=== PATIENT | female | born 1995 | race Caucasian/White ===

== ENCOUNTER 2022-01-07 11:30 | Observation (INO) | payer OTHER ==
[~2022-01-07] VITALS: Ht 152.4 cm; Wt 83.0 kg
[2022-01-07 12:22] VITALS: BP 126/82
[2022-01-07 13:09] LABS: BASOPHILS % (AUTO) 0.4 % (0.0-2.0); EOSINOPHILS # (AUTO) 0.1 K/uL (0-0.4); EOSINOPHILS % (AUTO) 0.5 % (0.0-4.0); HEMATOCRIT 38.2 % (36-48); HEMOGLOBIN 12.9 g/dL (12.0-16.0); LYMPHOCYTES # (AUTO) 2.1 K/uL (2.5-16.5); LYMPHOCYTES % (AUTO) 20.1 % (20.5-51.1); MEAN CORPUSCULAR HEMOGLOBIN 30 pg (27-31); MEAN CORPUSCULAR HGB CONC 34 g/dL (33-37); MEAN CORPUSCULAR VOLUME 87.1 fL (80-94); MONOCYTES # (AUTO) 0.8 K/uL (0.8-1.0); MONOCYTES % (AUTO) 7.8 % (1.7-9.3); NEUTROPHILS # (AUTO) 7.3 K/uL (1.8-7.7); NEUTROPHILS % (AUTO) 71.2 % (42.2-75.2); PLATELET COUNT (AUTO) 170 K/uL (140-450); RED BLOOD CELL COUNT(AUTO) 4.39 MIL/uL (4.20-5.40); RED CELL DISTRIBUTION WIDTH 14.2 % (11.6-13.7); WHITE BLOOD COUNT (AUTO) 10.3 K/uL (4.8-10.8)
[2022-01-07 13:13] LABS: APPEARANCE,URINE CLEAR (CLEAR); BILIRUBIN,URINE NEGATIVE (NEGATIVE); BLOOD, URINE NEGATIVE (NEGATIVE); COLOR,URINE YELLOW (YELLOW); LEUKOCYTE ESTERASE ,URINE NEGATIVE (NEGATIVE); NITRITE, URINE NEGATIVE (NEGATIVE); PH,URINE 6.5 (5.0-9.0); UGLUCOSE NEGATIVE (NEGATIVE)
[2022-01-07 13:29] LABS: ALBUMIN 2.6 g/dL (3.4-5.0); ANION GAP 15.1 (8-16); ASPARTATE AMINOTRANSFERASE 12 U/L (15-37); CARBON DIOXIDE 20.9 mmol/L (21-32); CHLORIDE 104 mmol/L (98-107); CREATININE 0.6 mg/dL (0.6-1.3); GFR ARICAN-AMERICAN 155 mL/min (>90); GLUCOSE 94 mg/dL (74-106); SODIUM SERUM 136 mmol/L (136-145); TOTAL BILIRUBIN 0.6 mg/dL (0.0-1.0); UREA NITROGEN, BLOOD 8 mg/dL (7-18); URIC ACID 3.9 mg/dL (2.6-7.2)
[2022-01-07 13:31] LABS: PROTHROMBIN TIME 9.1 secs (10.8-13.4)
[2022-01-07] MEDS ORDERED: PRETAB PO (14:58)
[2022-01-07 18:43] LABS: CREATININE,URINE 114 mg/dL (30-125); URINE TOTAL PROTEIN 32.2 mg/dL (0-12)
== END 2022-01-07 15:10 | disposition home or self-care (01) ==
LOC: MLD 11:30
PROVIDERS: ADMIT Obstetrics & Gynecology; ATTEND Obstetrics & Gynecology
DX: O26.893 Other specified pregnancy related conditions, third trimester (principal); Z20.822 Contact with and (suspected) exposure to COVID-19; R03.0 Elevated blood-pressure reading, without diagnosis of hypertension; Z3A.37 37 weeks gestation of pregnancy
CPT/HCPCS: 36415; 59025; 80053; 81003; 82570; 84550; 85025; 85384; 85610; 85730; 86886; 86900; 86901; 87426; G0378

== ENCOUNTER 2022-01-09 22:15 | Observation (INO) | payer OTHER ==
[~2022-01-09] VITALS: Ht 152.4 cm; Wt 83.9 kg
[~2022-01-09 22:15] MED LIST: PRETAB PO
[2022-01-09 22:54] VITALS: BP 124/87
[2022-01-10 00:38] LABS: BASOPHILS # (AUTO) 0.1 K/uL (0.00-0.22); BASOPHILS % (AUTO) 0.5 % (0.0-2.0); EOSINOPHILS # (AUTO) 0.1 K/uL (0-0.4); EOSINOPHILS % (AUTO) 0.4 % (0.0-4.0); HEMATOCRIT 41.4 % (36-48); HEMOGLOBIN 14.1 g/dL (12.0-16.0); LYMPHOCYTES # (AUTO) 2.6 K/uL (2.5-16.5); LYMPHOCYTES % (AUTO) 21.3 % (20.5-51.1); MEAN CORPUSCULAR HEMOGLOBIN 30 pg (27-31); MEAN CORPUSCULAR HGB CONC 34 g/dL (33-37); MEAN CORPUSCULAR VOLUME 87.5 fL (80-94); MONOCYTES # (AUTO) 0.8 K/uL (0.8-1.0); MONOCYTES % (AUTO) 6.4 % (1.7-9.3); NEUTROPHILS # (AUTO) 8.6 K/uL (1.8-7.7); NEUTROPHILS % (AUTO) 71.4 % (42.2-75.2); PLATELET COUNT (AUTO) 195 K/uL (140-450); RED BLOOD CELL COUNT(AUTO) 4.73 MIL/uL (4.20-5.40); RED CELL DISTRIBUTION WIDTH 14.4 % (11.6-13.7)
[2022-01-10 00:57] LABS: PROTHROMBIN TIME 8.9 secs (10.8-13.4)
[2022-01-10 00:58] LABS: ALBUMIN 2.9 g/dL (3.4-5.0); ANION GAP 14.7 (8-16); CARBON DIOXIDE 23.5 mmol/L (21-32); CREATININE 0.6 mg/dL (0.6-1.3); POTASSIUM 4.2 mmol/L (3.5-5.1); TOTAL BILIRUBIN 0.7 mg/dL (0.0-1.0); URIC ACID 3.6 mg/dL (2.6-7.2)
[2022-01-10 01:05] LABS: URINE TOTAL PROTEIN 10.1 mg/dL (0-12)
== END 2022-01-10 01:35 | disposition home or self-care (01) ==
LOC: MLD 22:15
PROVIDERS: ADMIT Obstetrics & Gynecology; ATTEND Obstetrics & Gynecology
DX: O26.893 Other specified pregnancy related conditions, third trimester (principal); Z20.822 Contact with and (suspected) exposure to COVID-19; R03.0 Elevated blood-pressure reading, without diagnosis of hypertension; Z3A.37 37 weeks gestation of pregnancy
CPT/HCPCS: 36415; 80053; 82570; 84550; 85025; 85384; 85610; 85730; 87426; G0378; 59025; 81000

== ENCOUNTER 2022-01-13 20:25 | Inpatient (IN) | payer OTHER ==
[~2022-01-13] VITALS: Ht 152.4 cm; Wt 83.9 kg
[2022-01-13 20:12] VITALS: BP 138/87
[2022-01-13] MEDS ORDERED: MORPHINE SULFATE 5 MG/ML VIAL IVP PRN (20:55)
[2022-01-13] MEDS ORDERED: ONDANSETRON 4 MG/2 ML VIAL IVP PRN (20:55)
[2022-01-13] MEDS ORDERED: LACTATED RINGERS 1,000 ML IV SCH (20:55)
[2022-01-13] MEDS ORDERED: OXYTOCIN 20 UNITS in LACTATED RINGERS 1,000 ML IV SCH (20:55)
[2022-01-13] MEDS ORDERED: METHYLERGONOVINE 0.2 MG/ML AMP IM PRN (20:55)
[2022-01-13] MEDS ORDERED: LACTATED RINGERS 500 ML IV SCH (20:55)
[2022-01-13] MEDS ORDERED: CARBOPROST 250 MCG/ML AMP IM PRN (20:55)
[2022-01-13 21:42] LABS: BASOPHILS % (AUTO) 0.2 % (0.0-2.0); EOSINOPHILS % (AUTO) 0.3 % (0.0-4.0); HEMATOCRIT 35.8 % (36-48); HEMOGLOBIN 12.5 g/dL (12.0-16.0); LYMPHOCYTES # (AUTO) 2.3 K/uL (2.5-16.5); LYMPHOCYTES % (AUTO) 20.3 % (20.5-51.1); MEAN CORPUSCULAR HEMOGLOBIN 30 pg (27-31); MEAN CORPUSCULAR HGB CONC 35 g/dL (33-37); MEAN CORPUSCULAR VOLUME 86.3 fL (80-94); MONOCYTES # (AUTO) 0.8 K/uL (0.8-1.0); MONOCYTES % (AUTO) 7.2 % (1.7-9.3); PLATELET COUNT (AUTO) 154 K/uL (140-450); RED BLOOD CELL COUNT(AUTO) 4.15 MIL/uL (4.20-5.40); RED CELL DISTRIBUTION WIDTH 14.2 % (11.6-13.7); WHITE BLOOD COUNT (AUTO) 11.2 K/uL (4.8-10.8)
[2022-01-13 21:46] LABS: APPEARANCE,URINE CLEAR (CLEAR); BILIRUBIN,URINE NEGATIVE (NEGATIVE); BLOOD, URINE NEGATIVE (NEGATIVE); COLOR,URINE YELLOW (YELLOW); LEUKOCYTE ESTERASE ,URINE NEGATIVE (NEGATIVE); NITRITE, URINE NEGATIVE (NEGATIVE); UGLUCOSE NEGATIVE (NEGATIVE)
[2022-01-13 22:08] LABS: ALBUMIN 2.6 g/dL (3.4-5.0); ANION GAP 15.5 (8-16); CARBON DIOXIDE 19.5 mmol/L (21-32); CREATININE 0.6 mg/dL (0.6-1.3); TOTAL BILIRUBIN 0.6 mg/dL (0.0-1.0); URIC ACID 4.5 mg/dL (2.6-7.2)
[2022-01-13 22:19] LABS: PROTHROMBIN TIME 9.1 secs (10.8-13.4)
[2022-01-14] MEDS ORDERED: MISOPROSTOL 25 MCG TAB VG SCH
[2022-01-14 02:15] LABS: URINE TOTAL PROTEIN 7.4 mg/dL (0-12)
[2022-01-14] MEDS ORDERED: MISOPROSTOL 25 MCG TAB PO SCH ×2 (06:00)
--- NOTE | 2022-01-14 10:39 | NUR ---
PATIENT HAS BEEN SCREENED AND CATEGORIZED LOW NUTRITION RISK. PATIENT WILL BE SEEN WITHIN 7 DAYS OF ADMISSION. 01/20/22 REVIEWED BY PAUL GUST[address]ON [address]
[2022-01-14] MEDS ORDERED: MORPHINE SULFATE 5 MG/ML VIAL IVP PRN (12:00)
[2022-01-14] MEDS ORDERED: MISOPROSTOL 25 MCG TAB ONE (12:02)
[2022-01-14] MEDS: MISOPROSTOL 25 MCG TAB VG SCH ×2 (12:14→20:22)
[2022-01-14] MEDS: LACTATED RINGERS 1,000 ML IV SCH ×2 (14:14→21:52)
[2022-01-14] MEDS ORDERED: LABETALOL 20 MG/4 ML VIAL IVP PRN (21:00)
[2022-01-15] MEDS: MISOPROSTOL 25 MCG TAB VG SCH ×3 (02:31→16:22)
[2022-01-15 09:00] LABS: BASOPHILS % (AUTO) 0.3 % (0.0-2.0); EOSINOPHILS # (AUTO) 0.1 K/uL (0-0.4); EOSINOPHILS % (AUTO) 0.8 % (0.0-4.0); HEMATOCRIT 36.6 % (36-48); HEMOGLOBIN 12.5 g/dL (12.0-16.0); LYMPHOCYTES # (AUTO) 2.4 K/uL (2.5-16.5); LYMPHOCYTES % (AUTO) 23.6 % (20.5-51.1); MEAN CORPUSCULAR HEMOGLOBIN 30 pg (27-31); MEAN CORPUSCULAR HGB CONC 34 g/dL (33-37); MEAN CORPUSCULAR VOLUME 88.2 fL (80-94); MONOCYTES # (AUTO) 0.8 K/uL (0.8-1.0); MONOCYTES % (AUTO) 7.5 % (1.7-9.3); NEUTROPHILS # (AUTO) 6.8 K/uL (1.8-7.7); NEUTROPHILS % (AUTO) 67.8 % (42.2-75.2); PLATELET COUNT (AUTO) 130 K/uL (140-450); RED BLOOD CELL COUNT(AUTO) 4.15 MIL/uL (4.20-5.40); RED CELL DISTRIBUTION WIDTH 14.5 % (11.6-13.7)
[2022-01-15 09:21] LABS: ALBUMIN 2.3 g/dL (3.4-5.0); ANION GAP 13.8 (8-16); CARBON DIOXIDE 21.2 mmol/L (21-32); CREATININE 0.6 mg/dL (0.6-1.3); TOTAL BILIRUBIN 0.6 mg/dL (0.0-1.0); URIC ACID 4.3 mg/dL (2.6-7.2)
[2022-01-15] MEDS: LACTATED RINGERS 1,000 ML IV SCH (09:30)
[2022-01-15 09:39] LABS: PROTHROMBIN TIME 8.8 secs (10.8-13.4)
[2022-01-15 11:27] LABS: URINE TOTAL PROTEIN 10.3 mg/dL (0-12)
[2022-01-15] MEDS ORDERED: OXYTOCIN 20 UNITS in LACTATED RINGERS 1,000 ML IV SCH (22:00)
[2022-01-15] MEDS ORDERED: OXYTOCIN 20 UNITS/LR PREMIX 1,000 ML IV ONE (23:38)
[2022-01-16] MEDS: LACTATED RINGERS 1,000 ML IV SCH
[2022-01-16 08:35] LABS: BASOPHILS % (AUTO) 0.4 % (0.0-2.0); EOSINOPHILS % (AUTO) 0.2 % (0.0-4.0); HEMATOCRIT 36.4 % (36-48); HEMOGLOBIN 12.3 g/dL (12.0-16.0); LYMPHOCYTES # (AUTO) 1.8 K/uL (2.5-16.5); MEAN CORPUSCULAR HEMOGLOBIN 30 pg (27-31); MEAN CORPUSCULAR HGB CONC 34 g/dL (33-37); MEAN CORPUSCULAR VOLUME 87.4 fL (80-94); MONOCYTES # (AUTO) 0.9 K/uL (0.8-1.0); MONOCYTES % (AUTO) 6.8 % (1.7-9.3); NEUTROPHILS # (AUTO) 9.8 K/uL (1.8-7.7); NEUTROPHILS % (AUTO) 78.6 % (42.2-75.2); PLATELET COUNT (AUTO) 138 K/uL (140-450); RED BLOOD CELL COUNT(AUTO) 4.17 MIL/uL (4.20-5.40); RED CELL DISTRIBUTION WIDTH 14.4 % (11.6-13.7); WHITE BLOOD COUNT (AUTO) 12.5 K/uL (4.8-10.8)
[2022-01-16] MEDS ORDERED: MORPHINE SULFATE 10 MG/ML VIAL ONE (09:02)
[2022-01-16 09:11] VITALS: BP 126/79
[2022-01-16 09:18] LABS: PROTHROMBIN TIME 9.3 secs (10.8-13.4)
[2022-01-16 09:36] LABS: ALBUMIN 2.2 g/dL (3.4-5.0); CARBON DIOXIDE 21.5 mmol/L (21-32); CREATININE 0.6 mg/dL (0.6-1.3); TOTAL BILIRUBIN 0.8 mg/dL (0.0-1.0); URIC ACID 4.7 mg/dL (2.6-7.2)
[2022-01-16 10:49] LABS: POTASSIUM 3.9 mmol/L (3.5-5.1)
[2022-01-16 10:50] LABS: ANION GAP 15.4 (8-16)
[2022-01-16] MEDS ORDERED: LIDOCAINE 1% 500 MG/50 ML VIAL ONE (11:32)
[2022-01-16] MEDS ORDERED: fentaNYL citrate 0.05 MG/ML VIAL ONE (12:18)
[2022-01-16] MEDS ORDERED: fentaNYL citrate 0.05 MG/ML VIAL IVP ONE (12:25)
[2022-01-16 16:00] LABS: URINE TOTAL PROTEIN 13.1 mg/dL (0-12)
[2022-01-16] MEDS ORDERED: OXYTOCIN 10 UNITS/ML VIAL IM PRN (17:40)
[2022-01-16] MEDS ORDERED: BENZOCAINE/MENTHOL 20%-0.5% 60 GM CAN TP PRN (17:40)
[2022-01-16] MEDS ORDERED: IBUPROFEN 600 MG TAB PO PRN (17:40)
[2022-01-16] MEDS ORDERED: MEASLES, MUMPS, AND RUBELLA 1 VIAL SQVAC ONE (17:40)
[2022-01-16] MEDS ORDERED: METHYLERGONOVINE 0.2 MG/ML AMP IM PRN (17:40)
[2022-01-16] MEDS ORDERED: METHYLERGONOVINE 0.2 MG TAB PO PRN (17:40)
[2022-01-16] MEDS: IBUPROFEN 800 MG TAB PO PRN (17:50)
[2022-01-17 07:27] LABS: HEMATOCRIT 30.8 % (36-48); HEMOGLOBIN 10.5 g/dL (12.0-16.0)
[2022-01-17] MEDS: IBUPROFEN 800 MG TAB PO PRN (08:25)
[2022-01-18 05:41] LABS: BASOPHILS % (AUTO) 0.2 % (0.0-2.0); EOSINOPHILS # (AUTO) 0.1 K/uL (0-0.4); EOSINOPHILS % (AUTO) 0.8 % (0.0-4.0); HEMATOCRIT 28.7 % (36-48); HEMOGLOBIN 9.9 g/dL (12.0-16.0); LYMPHOCYTES # (AUTO) 2.1 K/uL (2.5-16.5); LYMPHOCYTES % (AUTO) 20.1 % (20.5-51.1); MEAN CORPUSCULAR HEMOGLOBIN 30 pg (27-31); MEAN CORPUSCULAR HGB CONC 35 g/dL (33-37); MEAN CORPUSCULAR VOLUME 88.3 fL (80-94); MONOCYTES # (AUTO) 0.7 K/uL (0.8-1.0); MONOCYTES % (AUTO) 6.8 % (1.7-9.3); NEUTROPHILS # (AUTO) 7.6 K/uL (1.8-7.7); NEUTROPHILS % (AUTO) 72.1 % (42.2-75.2); PLATELET COUNT (AUTO) 117 K/uL (140-450); RED BLOOD CELL COUNT(AUTO) 3.26 MIL/uL (4.20-5.40); RED CELL DISTRIBUTION WIDTH 14.7 % (11.6-13.7); WHITE BLOOD COUNT (AUTO) 10.5 K/uL (4.8-10.8)
== END 2022-01-18 11:00 | disposition home or self-care (01) | DRG 807 ==
LOC: MLD 20:25 → MFCC 01-16 14:44
PROVIDERS: ADMIT Obstetrics & Gynecology; ATTEND Obstetrics & Gynecology
PROC: 10E0XZZ Delivery of Products of Conception, External Approach (ICD-10-PCS; principal; 2022-01-16)
PROC: 0KQM0ZZ Repair Perineum Muscle, Open Approach (ICD-10-PCS; 2022-01-16)
PROC: 3E033VJ Introduction of Other Hormone into Peripheral Vein, Percutaneous Approach (ICD-10-PCS; 2022-01-16)
PROC: 3E0DXGC Introduction of Other Therapeutic Substance into Mouth and Pharynx, External Approach (ICD-10-PCS; 2022-01-16)
DX: O69.1XX0 Labor and delivery complicated by cord around neck, with compression, not applicable or unspecified (principal); Z37.0 Single live birth; Z20.822 Contact with and (suspected) exposure to COVID-19; O70.1 Second degree perineal laceration during delivery; O14.94 Unspecified pre-eclampsia, complicating childbirth; O13.4 Gestational [pregnancy-induced] hypertension without significant proteinuria, complicating childbirth; Z3A.38 38 weeks gestation of pregnancy; O90.81 Anemia of the puerperium; D64.9 Anemia, unspecified
CPT/HCPCS: 36415; 59200; 59409; 76815; 80053; 81003; 82570; 84550; 85018; 85025; 85384; 85610; 85730; 86592; 86886; 86900; 86901; J2001; J2270; J2405; J2590; J3010; J3490; Q0092